=== PATIENT | male | born 1990 | race Caucasian/White ===

== ENCOUNTER 2016-05-08 19:53 | Emergency (ER) | payer BC ==
[2016-05-08] MEDS ORDERED: Ketorolac INJ* 60 MG/2 ML VIAL IM ONE (19:59)
[2016-05-08] MEDS ORDERED: HYDROcodone/ACETAMIN 5-325 MG* 1 TAB PO ONE ×2 (19:59→20:12)
[2016-05-08 20:28] VITALS: BP 140/94
--- NOTE | 2016-05-08 20:43 | UC ---
UC Dental HPI - HPI Summary HPI Summary: right lower tooth pain for 3 months has been on antibiotic and using 800 of ibu without relief - History of Current Complaint Chief Complaint: UC Stated Complaint: TOOTH PAIN Time Seen by Provider: 05/08/16 19:58 Hx Obtained From: Patient Onset/Duration: Gradual Onset, Lasting Weeks, Worse Since - past few days Severity: Severe Pain Intensity: 10 Pain Scale Used: 0-10 Numeric Aggravating: Heat, Cold, Chewing Alleviating: Nothing Related History: Previous Dental Care on Same Tooth - Allergies/Home Medications Allergies/Adverse Reactions: Allergies Allergy/AdvReac Type Severity Reaction Status Date / Time No Known Allergies Allergy Verified 02/09/14 08:53 Home Medications: Home Medications Multiple Vitamins W/ Minerals [Multivitamin Adult] 05/08/16 [History] PMH/Surg Hx/FS Hx/Imm Hx Previously Healthy: No Endocrine History Of: Denies: Diabetes Respiratory History Of: Reports: Asthma - "EXERCISED INDUCED" - Surgical History Surgical History: Yes Surgery Procedure, Year, and Place: KNEE SURGERY - Family History Known Family History: Positive: None Family History: denies cardiovascular issues in family lineage - Social History Occupation: Employed Full-time Lives: With Family Alcohol Use: None Substance Use Type: None, Other Smoking Status (MU): Never Smoked Tobacco - Immunization History Most Recent Influenza Vaccination: FALL 2013 Most Recent Tetanus Shot: UP TO DATE Most Recent Pneumonia Vaccination: NEVER Review of Systems Constitutional: Negative Skin: Negative Eyes: Negative ENT: Dental Pain - swelling right lower jaw Respiratory: Negative Cardiovascular: Negative Gastrointestinal: Negative Genitourinary: Negative Motor: Negative Neurovascular: Negative Musculoskeletal: Negative Neurological: Negative Psychological: Negative All Other Systems Reviewed And Are Negative: Yes Physical Exam Triage Information Reviewed: Yes Appearance: Well-Appearing, Well-Nourished, Pain Distress Vital Signs: Initial Vital Signs Temp 98.0 F 05/08/16 20:22 Pulse 83 05/08/16 20:22 Resp 98 05/08/16 20:22 BP 140/94 05/08/16 20:22 Pulse Ox 99 05/08/16 20:22 Vital Signs Reviewed: Yes Eye Exam: Normal Eyes: Positive: Conjunctiva Clear ENT Exam: Normal ENT: Positive: Normal ENT inspection, Hearing grossly normal, Pharynx normal, TMs normal. Negative: Nasal congestion, Nasal drainage, Tonsillar swelling, Tonsillar exudate, Trismus, Muffled/hoarse voice Dental Exam: Other Dental: Positive: Gross Decay/Caries @ - first molar right bottom gum broken to gum line swelling around tooth Neck exam: Normal Neck: Positive: Supple, Nontender, No Lymphadenopathy Respiratory Exam: Normal Respiratory: Positive: Chest non-tender, Lungs clear, Normal breath sounds, No respiratory distress, No accessory muscle use Cardiovascular Exam: Normal Cardiovascular: Positive: RRR, No Murmur, Pulses Normal, Brisk Capillary Refill Musculoskeletal Exam: Normal Musculoskeletal: Positive: Strength Intact, ROM Intact, No Edema Neurological Exam: Normal Neurological: Positive: Alert, Muscle Tone Normal, Fatigued Psychological Exam: Normal Psychological: Positive: Normal Response To Family Skin Exam: Normal Re-Evaluation - Re-Evaluation First Eval Change: Improved - good pain relief Dental Complaint Course/Dx - Course Course Of Treatment: continue clindamycin, add hydrocodone continue NSAID follow with dentist wednesday - Differential Dx/Diagnosis Differential Diagnosis/Dx: Dental Abscess, Dental Caries, Fractured Tooth, Odontogenic Pain, Peridontic Disease Provider Diagnoses: Dental fracture with abscess Discharge - Discharge Plan Condition: Stable Disposition: HOME Prescriptions: HYDROcodone/ACETAMIN 5-325 MG* [[place] 5-325 TAB*] 1 - 2 tab PO Q4H PRN #20 tab MDD 8 PRN Reason: Pain HYDROcodone/ACETAMIN 5-325 MG* [[place] 5-325 TAB*] 2 tab PO Q4H PRN #26 tab MDD 10 PRN Reason: pain Patient Education Materials: Dental Caries (ED), Hypertension (ED), Toothache ( ED) Referrals: Gi Hernández MD [Primary Care Provider] - 1 Week Additional Instructions: Follow with dentist first thing Wednesday
== END 2016-05-08 20:56 | disposition home or self-care (01) ==
LOC: UCEAST 19:53
DX: K03.81 Cracked tooth (principal); K04.7 Periapical abscess without sinus
CPT/HCPCS: 99212; G0463; J1885

== ENCOUNTER 2017-04-29 16:35 | Emergency (ER) | payer BC ==
[2017-04-29 16:43] VITALS: BP 156/93
--- NOTE | 2017-04-29 18:45 | UC ---
Darien Chew Julia, scribed for Flaco Cortez MD on 04/29/17 at 1829 . Abdominal Pain Male HPI - HPI Summary HPI Summary: This patient is a 27 year old M presenting to [facility] [place] with a chief complaint of intermittent cramping left lower abdominal pain for the past two weeks. Patient reports liquid diarrhea 5-6 times a day, low grade fever with general malaise, rhinorrhea, urinary urgency with limited urine output. Patient denies cough and chest congestion. The patient rates the pain 6/10 in severity. Symptoms aggravated by standing and sitting. Patient is self-treating with Tylenol. Patient denies recent antibiotic use. - History of Current Complaint Chief Complaint: UCAbdominalPain Stated Complaint: ABDOMINAL PAIN, AND DIARRHEA Time Seen by Provider: 04/29/17 18:11 Hx Obtained From: Patient Onset/Duration: Lasting Weeks, Still Present Timing: Intermittent Episodes Lasting: Pain Intensity: 6 Pain Scale Used: 0-10 Numeric Location: Diffuse, Discrete At: LLQ Character: Cramping Aggravating Factor(s): Movement Associated Signs And Symptoms: Positive: Other - liquid diarrhea 5-6 times a day , low grade fever with general malaise, rhinorrhea, urinary urgency with limited urine output - Allergies/Home Medications Allergies/Adverse Reactions: Allergies Allergy/AdvReac Type Severity Reaction Status Date / Time No Known Allergies Allergy Verified 04/29/17 16:43 PMH/Surg Hx/FS Hx/Imm Hx Other GI/ History: negative - Surgical History Surgical History: Yes Surgery Procedure, Year, and Place: KNEE SURGERY - Family History Known Family History: Negative: Cardiac Disease Family History: denies cardiovascular issues in family lineage - Social History Alcohol Use: None Substance Use Type: None, Other Substance Use Comment - Amount & Last Used: TOXICOLOGY SCREEN +CANNIBUS Smoking Status (MU): Light Every Day Tobacco Smoker - Immunization History Most Recent Influenza Vaccination: FALL 2013 Most Recent Tetanus Shot: UP TO DATE Most Recent Pneumonia Vaccination: NEVER Review of Systems Constitutional: Fever, Other - general malaise ENT: Negative Respiratory: Negative Gastrointestinal: Abdominal Pain, Diarrhea Genitourinary: Frequency, Urgency - limited output All Other Systems Reviewed And Are Negative: Yes Physical Exam Triage Information Reviewed: Yes Vital Signs: Initial Vital Signs Temp 97.8 F 04/29/17 16:40 Pulse 78 04/29/17 16:40 Resp 18 04/29/17 16:40 BP 156/93 04/29/17 16:40 Pulse Ox 98 04/29/17 16:40 Vital Signs Reviewed: Yes - Additional Comments General: mild ill appearing, no pain distress Skin: warm, color reflects adequate perfusion, dry Head: normal Eyes: EOMI, LIZZIE ENT: normal Neck: supple, nontender Respiratory: CTA, breath sounds present Cardiovascular: RRR Abdomen: soft, LLQ tenderness, mild suprapubic tenderness, no RLQ tenderness, no rebound Bowel: present Musculoskeletal: normal, strength/ROM intact Neurological: normal, sensory/motor intact, A&O x3 Psychological: affect/mood appropriate Abd Pain Male Course/Dx - Course Course Of Treatment: BP noted and advised to follow up with PC. PAIN IS MOSTLY LOWER AND LLQ . NO RECENT ABX. RLQ NT TO PALPATION. DISCUSSED GETTING A CT SCAN IN THE ED; THE PATIENT DECLINED AT THIS TIME. WILL CHECK CRP, CBC, CMP, UA AND STOOL. WILL STRART CIPRO/FLAGYL X 7 DAYS AND F/U PMD; GO TO ED IF WORSE. - Differential Dx/Clinical Impression Provider Diagnoses: ABDOMINAL PAIN. DIARRHEA Discharge - Discharge Plan Condition: Stable Disposition: HOME Prescriptions: Ciprofloxacin TAB* [Cipro 500 MG TAB*] 500 mg PO BID #14 tab metroNIDAZOLE [Flagyl 500 MG TAB] 500 mg PO TID #21 tab Patient Education Materials: Acute Diarrhea (ED), Acute Abdominal Pain (ED) Forms: *Work Release Referrals: Gi Hernández MD [Primary Care Provider] - Additional Instructions: FOLLOW UP WITH YOUR DOCTOR. GO TO THE EMERGENCY DEPARTMENT FOR ANY WORSENING OF YOUR CONDITION OR QUESTIONS OR CONCERNS. Your blood pressure was elevated during todays visit; please follow up with your primary care provider within a week for further evaluation. The documentation as recorded by the Darien bowers Julia accurately reflects the service I personally performed and the decisions made by me, Flaco Cortez MD.
[2017-04-30 10:42] LABS: ABS Basophils 0.1 10^3/ul (0-0.2); ABS Eosinophils 0.4 10^3/ul (0-0.6); ABS Monocytes 0.9 10^3/ul (0-0.8); ABS Neutrophils 5.8 10^3/ul (1.5-7.7); ABS Nucleated RBC 0 10^3/ul; Eosinophil % 3.2 % (0-6); Hematocrit 47 % (42-52); Hemoglobin 16.4 g/dl (14.0-18.0); Lymphocyte % 35.9 % (25-47); Mean Corpuscular HGB Conc 35 g/dl (31-36); Mean Corpuscular Hemoglobin 30 pg (27-31); Mean Corpuscular Volume 87 fL (80-94); Mean Platelet Volume 8 um3 (7.4-10.4); Nucleated Red Blood Cells % 0.2; Platelet Count 291 10^3/ul (150-450); Red Blood Count 5.38 10^6/ul (4.0-5.4); Red Cell Distribution Width 13 % (10.5-15); White Blood Count 11.2 10^3/ul (3.5-10.8)
[2017-04-30 11:00] LABS: EGFR Non-African American 60.8 (>60)
== END 2017-04-29 19:03 | disposition home or self-care (01) ==
LOC: UCEAST 16:35
DX: R10.32 Left lower quadrant pain (principal); R19.7 Diarrhea, unspecified; R50.9 Fever, unspecified; R53.81 Other malaise; J34.89 Other specified disorders of nose and nasal sinuses; R39.15 Urgency of urination; F17.200 Nicotine dependence, unspecified, uncomplicated
CPT/HCPCS: 36415; 80053; 85025; 86140; 99212; G0463

== ENCOUNTER 2018-04-27 16:48 | Emergency (ER) | payer BC ==
[2018-04-27 17:26] VITALS: BP 125/88
[2018-04-27 17:37] LABS: Influenza A Molecular POSITIVE (Negative)
[2018-04-27] MEDS ORDERED: Ibuprofen TAB* 400 MG PO ONE (17:40)
--- NOTE | 2018-04-27 17:47 | UC ---
FLU HPI - HPI Summary HPI Summary: 28 y/o male presents to the urgent care c/o dry cough, nasal congestion w/ clear nasal drainage, body aches, chills, GUTIÉRREZ, mild sore throat for the past 3 days. He has been taking Tylenol PO to alleviate symptoms. Last dose taken about 1 hr ago. Pt states low grade subjective fever at home. Decrease appetite. Pt denies dizziness, SOB, chest pain,abdominal pain, N/V/D. - History of Current Complaint Chief Complaint: UCGeneralIllness Stated Complaint: FEVER COUGH Time Seen by Provider: 04/27/18 17:13 Hx Obtained From: Patient Onset/Duration: Gradual Onset, Lasting Days - 3 days, Still Present, Worse Since - today Severity Currently: Mild Severity Initially: Moderate Pain Intensity: 5 Pain Scale Used: 0-10 Numeric Associated Signs & Symptoms: Positive: Myalgia, Cough - dry, Sore Throat - mild , Nasal Congestion - clear, Headache. Negative: Vomiting, Diarrhea Related Hx: Possible Flu/Infectious Exposure - daughter - Risk Factors Influenza Risk Factors: Negative - Allergy/Home Medications Allergies/Adverse Reactions: Allergies Allergy/AdvReac Type Severity Reaction Status Date / Time No Known Allergies Allergy Verified 04/27/18 16:57 PMH/Surg Hx/FS Hx/Imm Hx Previously Healthy: Yes - Pt denies PMHX - Surgical History Surgical History: Yes Surgery Procedure, Year, and Place: KNEE SURGERY - Family History Known Family History: Positive: Hypertension Negative: Cardiac Disease Family History: denies cardiovascular issues in family lineage - Social History Occupation: Employed Full-time Lives: With Family Alcohol Use: Weekly Substance Use Type: None Substance Use Comment - Amount & Last Used: TOXICOLOGY SCREEN +CANNIBUS Smoking Status (MU): Light Every Day Tobacco Smoker - Immunization History Most Recent Influenza Vaccination: FALL 2013 Most Recent Tetanus Shot: UP TO DATE Most Recent Pneumonia Vaccination: NEVER Review of Systems All Other Systems Reviewed And Are Negative: Yes Constitutional: Positive: Fever, Chills, Fatigue, Other - body aches Skin: Positive: Negative Eyes: Positive: Negative ENT: Positive: Sore Throat - mild, Nasal Discharge - clear, Sinus Congestion, Sinus Pain/Tenderness Respiratory: Positive: Cough - dry Cardiovascular: Positive: Negative Gastrointestinal: Positive: Negative Genitourinary: Positive: Negative Motor: Positive: Negative Neurovascular: Positive: Negative Musculoskeletal: Positive: Myalgia Neurological: Positive: Headache Psychological: Positive: Negative Is Patient Immunocompromised?: No Physical Exam - Summary Physical Exam Summary: VITAL SIGNS: Reviewed. GENERAL: Patient is a well developed and nourished male who is sitting comfortable in the examining table. Patient is not in any acute respiratory distress. HEAD AND FACE: No signs of trauma. No ecchymosis, hematomas or skull depressions. No sinus tenderness. EYES: PERRLA, EOMI x 2, No injected conjunctiva, no nystagmus. No photophobia. EARS: Hearing grossly intact. Ear canals and tympanic membranes are within normal limits. Nose: edematous and erythematous nasal mucosa w/ clear nasal discharge. MOUTH: Positive no erythema, no tonsillar enlargement. Uvula in midline. NECK: Supple, trachea is midline, Positive anterior cervical lymphadenopathy, no JVD, no carotid bruit, no c-spine tenderness, neck with full ROM. No meningeal signs, no Kernig's or brudzinskis signs. CHEST: Symmetric, no tenderness at palpation LUNGS: Clear to auscultation bilaterally. No wheezing or crackles. CVS: Regular rate and rhythm, S1 and S2 present, no murmurs or gallops appreciated. ABDOMEN: Soft, non-tender. No signs of distention. No rebound no guarding, and no masses palpated. Bowel sounds are normal. EXTREMITIES: FROM in all major joints, no edema, no cyanosis or clubbing. NEURO: Alert and oriented x 3. No acute neurological deficits. Speech is normal and follows commands. SKIN: Dry and warm Triage Information Reviewed: Yes Vital Signs: Initial Vital Signs Temp 99.8 F 04/27/18 16:51 Pulse 79 04/27/18 16:51 Resp 16 04/27/18 16:51 BP 125/88 04/27/18 16:51 Pulse Ox 100 04/27/18 16:51 Flu Course/Dx - Course Course Of Treatment: 28 y/o male presents to the urgent care c/o dry cough, nasal congestion w/ clear nasal drainage, body aches, chills, GUTIÉRREZ, mild sore throat for the past 3 days. He has been taking Tylenol PO to alleviate symptoms. Last dose taken about 1 hr ago. Pt states low grade subjective fever at home. Decrease appetite. Pt denies dizziness, SOB, chest pain,abdominal pain , N/V/D. Hx obtained. Pt with URI on examination.Influenza A&B ordered: result: Influenza B positive.Pt Rx Tamiflu and ibuprofen PO to alleviates symptoms. Advised on hand washing and wear a mask to avoid spreading. Pt advised to rest, increase fluid intake, eat well and avoid strenuous exercise. If symptoms do not improve or worsen advised to return to the urgent care or f/u with her PCP for further evaluation and treatment. Pt understood and agreed - Differential Dx/Diagnosis Differential Diagnosis/HQI/PQRI: Bronchitis, Influenza, Upper Respiratory Infection Provider Diagnosis: Influenza A Discharge - Sign-Out/Discharge Documenting (check all that apply): Patient Departure - d/c home All imaging exams completed and their final reports reviewed: No Studies - Discharge Plan Condition: Stable Disposition: HOME Prescriptions: Ibuprofen TAB* [Motrin TAB* 800 MG] 800 mg PO Q6H PRN #30 tab PRN Reason: Pain Oseltamivir CAP* [Tamiflu CAP*] 75 mg PO BID #10 cap Patient Education Materials: Influenza (ED) Forms: *Work Release Referrals: Gi Hernández MD [Primary Care Provider] - 3 Days Additional Instructions: 1- Please take the full course of the antiviral to avoid resistance. Encourage hand washing and wear a mask to avoid spreading. 2-Please ibuprofen PO q6-8hrs prn as instructed after meals to alleviate fever , and sore throat. Increase fluid intake, eat well, rest and avoid strenuous exercise 3-If symptoms do not improve or worsen please return to the urgent care or f/u with your PCP in 3 days for further evaluation and treatment. - Billing Disposition and Condition Condition: STABLE Disposition: Home
== END 2018-04-27 18:10 | disposition home or self-care (01) ==
LOC: UCEAST 16:48
DX: J10.1 Influenza due to other identified influenza virus with other respiratory manifestations (principal); F17.200 Nicotine dependence, unspecified, uncomplicated
CPT/HCPCS: 99212; A9270-GY; G0463

== ENCOUNTER 2020-11-28 08:57 | Observation (INO) ==
[2020-11-28] MEDS ORDERED: Lactated Ringers 1000 ml BAG 1,000 ML IV ONE (09:37)
[2020-11-28 09:40] LABS: ABS Basophils 0.1 10^3/ul (0-0.2); ABS Lymphocytes 1.8 10^3/ul (1.0-4.8); ABS Monocytes 0.6 10^3/ul (0-0.8); ABS Neutrophils 6.9 10^3/ul (1.5-7.7); Eosinophil % 0.5 %; Hematocrit 47 % (42-52); Hemoglobin 16.3 g/dL (14.0-18.0); Lymphocyte % 19.7 %; Mean Corpuscular HGB Conc 35 g/dL (31-36); Mean Corpuscular Hemoglobin 31 pg (27-31); Mean Corpuscular Volume 90 fL (80-94); Mean Platelet Volume 6.9 fL (7.4-10.4); Nucleated Red Blood Cells % 0.1; Platelet Count 280 10^3/uL (150-450); Red Blood Count 5.19 10^6 /uL (4.18-5.48); Red Cell Distribution Width 13 % (10-15); White Blood Count 9.4 10^3/uL (3.5-10.8)
[2020-11-28 09:59] LABS: Albumin 4.8 g/dL (3.2-5.2); Albumin/Globulin Ratio 1.5 (1-3); EGFR African American 95.5 (>60); EGFR Non-African American 78.9 (>60); Globulin 3.2 g/dL (2-4); Magnesium 1.8 mg/dL (1.9-2.7); Total Bilirubin 0.7 mg/dL (0.2-1.0)
[2020-11-28 10:00] LABS: Troponin I 0.01 ng/mL (<0.03)
[2020-11-28] MEDS ORDERED: Magnesium Sulfate 2 gm BAG 2 GM/50 ML BAG IVPB ONE (10:06)
[2020-11-28] MEDS ORDERED: Iohexol 350 (CONTRAST) 500 ML MDV IV ONE (13:23)
[2020-11-28] MEDS ORDERED: NS 0.9% 1000 ml BAG 1,000 ML IV SCH (13:45)
[2020-11-29 06:21] LABS: Albumin 3.8 g/dL (3.2-5.2); Albumin/Globulin Ratio 1.5 (1-3); Calcium 8.8 mg/dL (8.6-10.3); EGFR African American 93.5 (>60); EGFR Non-African American 77.3 (>60); Globulin 2.5 g/dL (2-4); Total Bilirubin 0.4 mg/dL (0.2-1.0); Total Protein 6.3 g/dL (6.4-8.9)
[2020-11-29 14:30] VITALS: BP 115/65
[2020-11-29 14:38] LABS: Urine Appearance Clear; Urine Bilirubin Negative (Negative); Urine Blood Negative (Negative); Urine Color Straw; Urine Glucose Negative (Negative); Urine Ketones Negative (Negative); Urine Nitrite Negative (Negative); Urine Protein Negative (Negative); Urine Specific Gravity 1.009 (1.002-1.030); Urine Urobilinogen Negative (Negative)
[2020-11-29 15:05] LABS: Urine Benzodiazepine Screen None Detected (None Detect); Urine Cannabinoids Screen Presumptive Positive (None Detect); Urine Opiates Screen None Detected (None Detect)
== END 2020-11-29 16:05 | disposition home or self-care (01) ==
LOC: MEDTELE 08:57 → ED 08:57 → MEDTELE 19:20
PROVIDERS: ADMIT Internal Medicine; ATTEND Internal Medicine